=== PATIENT | male | born 1960 | race Caucasian/White ===

== ENCOUNTER 2016-09-23 21:24 | Inpatient (IN) | payer OTHER ==
[~2016-09-23] VITALS: Ht 177.8 cm; Wt 72.3 kg
[2016-09-23] MEDS ORDERED: DOPamine 400MG / D5W 400 MG IV STA (21:46)
[2016-09-23] MEDS ORDERED: SODIUM CHLORIDE 0.9% 1000ML 1,000 ML IV STA ×4 (21:46→22:11)
[2016-09-23] MEDS ORDERED: DOPamine 400MG / 250ML D5W ONE (21:47)
[2016-09-23] MEDS ORDERED: VANCOMYCIN INJ 1,600 MG in SODIUM CHLORIDE 0.9% 500ML 500 ML IV STA (21:48)
[2016-09-23] MEDS ORDERED: PIPERACILLIN/TAZOBACTAM 4.5 GM/100ML D5W IV STA (21:48)
[2016-09-23] MEDS ORDERED: ALBUT/IPRATROP 3MG/0.5MG NEB 3 ML VIAL INH STA (21:51)
--- NOTE | 2016-09-23 21:57 | DIAGNOSTIC IMAGING REPORT ---
CHEST ONE VIEW PORTABLE CLINICAL HISTORY: Weakness SHORTNESS OF BREATH, CHEST PAIN COMPARISON STUDY: No previous studies for comparison. FINDINGS: The heart is at the upper limits of normal in size. There are extensive left lung airspace opacities, likely representing a pneumonia. Clinical and radiographic follow-up is recommended[ IMPRESSION: Extensive left lung airspace opacities, suspicious for pneumonia. Clinical and imaging follow-up is recommended Electronically signed by: Kyler Saavedra M.D. 09/23/2016 9:56 PM Dictated Date/Time: 09/23/2016 9:55 PM
[2016-09-23] MEDS ORDERED: SODIUM CHLORIDE 0.9% 500ML 500 ML IV STA ×2 (21:58→22:42)
[2016-09-23 21:59] LABS: HEMATOCRIT 41.5 % (42-52); MEAN CELL VOLUME 96.3 fL (80-100); MEAN CORPUSCULAR HEMOGLOBIN 33.4 pg (25-34); MEAN CORPUSCULAR HGB CONC 34.7 g/dl (32-36); MEAN PLATELET VOLUME 10.5 fL (7.4-10.4); PLATELET COUNT 199 K/uL (130-400); RED BLOOD COUNT 4.31 M/uL (4.7-6.1); WHITE BLOOD COUNT 4.21 K/uL (4.8-10.8)
[2016-09-23 22:00] LABS: ISTAT CREATININE 3.1 mg/dl (0.6-1.3); ISTAT HEMOGLOBIN 13.6 g/dl (14.0-18.0); ISTAT IONIZED CALCIUM 1.12 mmol/l (1.12-1.32)
[2016-09-23] MEDS ORDERED: LEVAQUIN 750MG / 150ML D5W IV ONE (22:00)
[2016-09-23] MEDS ORDERED: FENTANYL CITRATE INJ 50 MCG/1 ML 2 ML VIAL IV ONE (22:00)
[2016-09-23 22:15] LABS: ALT/SGPT 19 U/L (12-78); BLOOD UREA NITROGEN 42 mg/dl (7-18); BUN/CREATININE RATIO 12.6 (10-20); CALCIUM 8.3 mg/dl (8.5-10.1); CARBON DIOXIDE 20 mmol/L (21-32); CHLORIDE 105 mmol/L (98-107); GLUCOSE 122 mg/dl (70-99); POTASSIUM 2.7 mmol/L (3.5-5.1); SODIUM 140 mmol/L (136-145)
[2016-09-23 22:18] LABS: INR 1.9 (0.9-1.1); PARTIAL THROMBOPLASTIN RATIO 2.5; PROTHROMBIN TIME (PATIENT) 21.1 SECONDS (9.0-12.0)
[2016-09-23 22:23] LABS: ALKALINE PHOSPHATASE 57 U/L (45-117); AST/SGOT 21 U/L (15-37); CKMB/CK RATIO 2.9 (0-3.0)
[2016-09-23] MEDS ORDERED: POTASSIUM CHLORIDE 10 MEQ / 100ML WTR IV STA (22:33)
[2016-09-23] MEDS ORDERED: CICL160A INH (22:34)
[2016-09-23] MEDS ORDERED: AMLO-110 PO (22:34)
[2016-09-23] MEDS ORDERED: ATOR-22 PO (22:34)
[2016-09-23] MEDS ORDERED: DOCU100C31 PO (22:34)
[2016-09-23] MEDS ORDERED: BISA1TAB15 PO (22:34)
[2016-09-23] MEDS ORDERED: FIBER PO (22:37)
[2016-09-23] MEDS ORDERED: TOPI50TA16 PO (22:39)
[2016-09-23] MEDS ORDERED: NAPR375T3 PO (22:39)
[2016-09-23] MEDS ORDERED: TOPI25TA99 PO (22:39)
[2016-09-23] MEDS ORDERED: LISI-725 PO (22:39)
[2016-09-23 22:41] VITALS: PULSE 120; O2SAT 95
[2016-09-23] MEDS ORDERED: VNTHFA/IN INH (22:42)
[2016-09-23 22:44] VITALS: PULSE 120; O2SAT 95
[2016-09-23] MEDS ORDERED: ONDANSETRON INJ 2 MG/ML 2 ML VIAL IV STA (22:59)
[2016-09-23] MEDS ORDERED: CONSULT PHARMACY STA (23:42)
[2016-09-23] MEDS ORDERED: VANCOMYCIN INJ 1,000 MG in SODIUM CHLORIDE 0.9% 250ML 250 ML IV STA (23:42)
[2016-09-23] MEDS ORDERED: LEVOFLOXACIN / D5W 750 MG in PREMIXED IN D5W 150 ML IV STA (23:42)
[2016-09-23] MEDS ORDERED: LINEZOLID / D5W 600 MG in PREMIXED IN D5W 300 ML IV STA (23:42)
[2016-09-23] MEDS ORDERED: TOBRAMYCIN SULF INJ 0 MG in DEXTROSE 5% 100ML 100 ML IV STA (23:42)
[2016-09-23] MEDS ORDERED: ALBUTEROL HFA 8 GM INHALER INH PRN (23:45)
[2016-09-23] MEDS ORDERED: ACETAMINOPHEN 325 MG TAB PO PRN (23:45)
[2016-09-23] MEDS ORDERED: BISACODYL 5 MG TABEC PO PRN (23:45)
[2016-09-23 23:52] LABS: LARGE PLATELETS 1+
[2016-09-24] VITALS (8 sets, daily range): BP systolic 17–97; BP diastolic 10–76; PULSE 93–117; TEMP 35.7–36.5; O2SAT 56–88; Ht 177.8 cm; Wt 72.3 kg
[2016-09-24] MEDS ORDERED: PIPERACILL/TAZOBAC IV 4.5 GM in DEXTROSE 5% 100ML 100 ML IV SCH ×2
[2016-09-24 00:46] LABS: COMPLETE YES; EOSINOPHIL % 0.9 %; LYMPHOCYTE % 42.7 %; META ABS # 1.43 K/uL (0-0); METAMYELOCYTE % 33.9 %; MYELOCYTE % 4.3 %
[2016-09-24] MEDS ORDERED: METHYLPREDNISOLONE IV 60 MG in SYRINGE 0 ML IV STA (00:57)
[2016-09-24] MEDS ORDERED: NSS + 20MEQ KCL 1000ML 1,000 ML IV SCH (01:00)
[2016-09-24] MEDS ORDERED: AZTREONAM IV 2,000 MG in DEXTROSE 5% 100ML 100 ML IV STA (01:05)
--- NOTE | 2016-09-24 01:07 | EMERGENCY ROOM VISIT NOTE ---
History Report prepared by Pollo: Domi Slater Under the Supervision of: Dr. Jonathan Fontaine M.D. First contact with patient: 21:46 Chief Complaint: CHEST PAIN Stated Complaint: SHORTNESS OF BREATH/CHEST PAIN Nursing Triage Summary: Pt arrives to ER via ALS w/ c/o SOB and chest pain. pt reports shortness of breath and chest pain all day. Collapsed while walking to cell this evening (no LOC). Pt was given nitro at that time with a pressure in the 80's systolically. Pts BP following nitro in the 70's systolically. 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 Pt on non-rebreather 10L with an O2 saturation of 99%. History of Present Illness The patient is a 56 year old male who presents to the Emergency Room with complaints of constant chest pain and shortness of breath beginning today. The patient states that he has been short of breath all day today and has had a cough for the last 2 days. He reports that he became extremely short of breath and collapsed tonight and became hypoxic. The patient was complaining of chest pain and got oxygen and nitroglycerin before becoming more hypotensive. EMS was called and the patient received a fluid bolus. They report that the patient had crackles in the lungs en route. The patient reports that he has left sided chest pain that he rates as an 8/10 in severity. He complains of back pain and flank pain. Pt denies LOC, headache, fevers, chills, visual changes, neck pain, nausea, vomiting, abdominal pain, melena, hematochezia, urinary symptoms, numbness, weakness, lymphadenopathy, rash, or other complaints. Source of History: patient Onset: this morning Position: chest Timing: constant Associated Symptoms: + chest pain, + SOB, + back pain Review of Systems See HPI for pertinent positives and negatives. A total of ten systems were reviewed and were otherwise negative. Past Medical & Surgical Medical Problems: (1) History of emphysema (2) Hypotension (3) Pneumonia (4) Severe sepsis Family History No pertinent family history stated. Social History Smoking Status: Never Smoker Marital Status: single Housing Status: other (prisoner) Occupation Status: unemployed Current/Historical Medications Scheduled Amlodipine (Norvasc), 5 MG PO DAILY Atorvastatin (Lipitor), 20 MG PO HS Ciclesonide (Alvesco), 1 PUFF INH BID Docusate Sodium (Docusate Sodium), 100 MG PO DAILY Fiber Laxative (Fiber Laxative), 1 TAB PO DAILY Lisinopril (Zestril), 20 MG PO DAILY Naproxen (Naproxen), 375 MG PO BID Topiramate (Topamax ), 25 MG PO BID Topiramate (Topamax), 50 MG PO BID Scheduled PRN Albuterol Hfa (Ventolin Hfa), 2 PUFFS INH Q4H PRN for SOB/Wheezing Bisacodyl (Bisacodyl), 10 MG PO DAILY PRN for Constipation Allergies Coded Allergies: No Known Allergies (Unverified , 09/23/16) Physical Exam Vital Signs Date Time Temp Pulse Resp B/P (MAP) Pulse Ox O2 Delivery O2 Flow Rate FiO2 09/23/16 23:31 116 16 106/64 100 BiPAP 09/23/16 23:16 09/23/16 23:11 115 98/68 09/23/16 23:06 114 90/56 09/23/16 23:05 118 09/23/16 23:01 82/48 09/23/16 22:56 90/48 09/23/16 22:55 117 09/23/16 22:52 87/48 09/23/16 22:45 117 09/23/16 22:44 120 26 95 BiPAP/CPAP 09/23/16 22:41 120 95 100 09/23/16 22:40 116 24 83/53 BiPAP 09/23/16 22:25 115 24 88/50 BiPAP 09/23/16 22:20 116 30 64/44 BiPAP 09/23/16 21:39 123 09/23/16 21:34 36.8 120 22 71/46 97 Non-Rebreather 10.0 09/23/16 21:34 97 Non-Rebreather 10.0 09/23/16 21:34 99 Non-Rebreather 10.0 Physical Exam GENERAL: Awake, alert, well-appearing, in moderate distress HENT: Normocephalic, atraumatic. Oropharynx unremarkable. EYES: Normal conjunctiva. Sclera non-icteric. NECK: Supple. No nuchal rigidity. FROM. No JVD. RESPIRATORY: Diffuse crackles and rhonchi on the left side, dyspneic appearing. CARDIAC: Tachycardic rate, normal rhythm. Extremities warm and well perfused. Pulses equal. ABDOMEN: Soft, non-distended. No tenderness to palpation. No rebound or guarding. No masses. RECTAL: Deferred. MUSCULOSKELETAL: Chest examination reveals no tenderness. The back is symmetrical on inspection without obvious abnormality. There is no CVA tenderness to palpation. No joint edema. LOWER EXTREMITIES: Calves are equal size bilaterally and non-tender. No edema. No discoloration. NEURO: Normal sensorium. No sensory or motor deficits noted. SKIN: No rash or jaundice noted. Medical Decision & Procedures ER Provider Diagnostic Interpretation: Radiology results as stated below per my review and radiologist interpretation: CHEST ONE VIEW PORTABLE FINDINGS: The heart is at the upper limits of normal in size. There are extensive left lung airspace opacities, likely representing a pneumonia. Clinical and radiographic follow-up is recommended[ IMPRESSION: Extensive left lung airspace opacities, suspicious for pneumonia. Clinical and imaging follow-up is recommended Electronically signed by: Kyler Saavedra M.D. 09/23/2016 9:56 PM Dictated Date/Time: 09/23/2016 9:55 PM Laboratory Results 09/23/16 21:40 Red Blood Count 4.31, Mean Corpuscular Volume 96.3, Mean Corpuscular Hemoglobin 33.4, Mean Corpuscular Hemoglobin Concent 34.7, Mean Platelet Volume 10.5 09/23/16 21:40 Test 09/23/16 21:40 09/23/16 21:42 09/23/16 21:48 09/23/16 22:08 White Blood Count 4.21 K/uL (4.8-10.8) Red Blood Count 4.31 M/uL (4.7-6.1) Hemoglobin 14.4 g/dL (14.0-18.0) Hematocrit 41.5 % (42-52) Mean Corpuscular Volume 96.3 fL (80-100) Mean Corpuscular Hemoglobin 33.4 pg (25-34) Mean Corpuscular Hemoglobin Concent 34.7 g/dl (32-36) Platelet Count 199 K/uL (130-400) Mean Platelet Volume 10.5 fL (7.4-10.4) RDW Standard Deviation 47.2 fL (36.4-46.3) RDW Coefficient of Variation 13.2 % (11.5-14.5) Neutrophils % (Manual) 13.0 % Lymphocytes % (Manual) 42.7 % Monocytes % (Manual) 5.2 % Eosinophils % (Manual) 0.9 % Metamyelocytes % 33.9 % Myelocytes % 4.3 % Neutrophils # (Manual) 0.55 K/uL (1.4-6.5) Total Absolute Neutrophils 0.55 K/uL (1.4-6.5) Lymphocytes # (Manual) 1.80 K/uL (1.2-3.4) Total Absolute Lymphocytes 1.80 K/uL (1.2-3.4) Monocytes # (Manual) 0.22 K/uL (0.11-0.59) Eosinophils # (Manual) 0.04 K/uL (0-0.5) Metamyelocytes # 1.43 K/uL (0-0) Myelocytes # 0.18 K/uL (0-0) Large Platelets 1+ Prothrombin Time 21.1 SECONDS (9.0-12.0) Prothromb Time International Ratio 1.9 (0.9-1.1) Activated Partial Thromboplast Time 65.8 SECONDS (21.0-31.0) Partial Thromboplastin Ratio 2.5 Est Creatinine Clear Calc Drug Dose 25.8 ml/min Estimated GFR () 22.9 Estimated GFR (Non- 19.8 BUN/Creatinine Ratio 12.6 (10-20) Calcium Level 8.3 mg/dl (8.5-10.1) Magnesium Level 2.0 mg/dl (1.8-2.4) Total Bilirubin 0.7 mg/dl (0.2-1) Direct Bilirubin 0.2 mg/dl (0-0.2) Aspartate Amino Transf (AST/SGOT) 21 U/L (15-37) Alanine Aminotransferase (ALT/SGPT) 19 U/L (12-78) Alkaline Phosphatase 57 U/L (45-117) Total Creatine Kinase 131 U/L (39-308) Creatine Kinase MB 3.8 ng/ml (0.5-3.6) Creatine Kinase MB Ratio 2.9 (0-3.0) Troponin I < 0.015 ng/ml (0-0.045) Total Protein 5.9 gm/dl (6.4-8.2) Albumin 2.6 gm/dl (3.4-5.0) Lipase 51 U/L (73-393) Thyroid Stimulating Hormone (TSH) 1.820 uIu/ml (0.300-4.500) Bedside Troponin I < 0.030 ng/ml (0-0.045) Bedside Hemoglobin 13.6 g/dl (14.0-18.0) Bedside Hematocrit 40 % (42-52) Bedside Sodium 137 mEq/L (135-144) Bedside Potassium 2.6 mEq/L (3.3-5.0) Bedside Chloride 102 mEq/L (101-112) Bedside Total CO2 18 mEq/l (24-31) Anion Gap 20.0 mmol/L (16-25) Bedside Blood Urea Nitrogen 39 mg/dl (7-18) Bedside Creatinine 3.1 mg/dl (0.6-1.3) Bedside Glucose (other) 122 mg/dl (70-99) Bedside Ionized Calcium ([place]) 1.12 mmol/l (1.12-1.32) Bedside Lactic Acid Venous 5.13 mmol/L (0.90-1.70) Laboratory results reviewed by me Medications Administered Medications (Trade) Dose Ordered Sig/Elma Route Start Time Stop Time Status Last Admin Dose Admin Sodium Chloride 1,000 ml @ 999 mls/hr Q1H1M STAT IV 09/23/16 21:46 09/23/16 22:46 DC 09/23/16 22:10 999 MLS/HR Dopamine HCl/ Dextrose 0 ml @ 0 mls/hr Q0M STAT IV 09/23/16 21:46 09/23/16 21:48 DC 09/23/16 22:04 10 MLS/HR Sodium Chloride 1,000 ml @ 999 mls/hr Q1H1M STAT IV 09/23/16 21:48 09/23/16 22:48 DC 09/23/16 22:10 999 MLS/HR Piperacillin Sod/ Tazobactam Sod (Zosyn Iv) 4.5 gm NOW STAT IV 09/23/16 21:48 09/23/16 21:52 DC 09/23/16 22:20 4.5 GM Levofloxacin (Levaquin / D5W) 750 mg NOW ONCE IV 09/23/16 22:00 09/23/16 22:01 DC 09/23/16 22:22 750 MG Vancomycin HCl 1600 mg/Sodium Chloride 532 ml @ 200 mls/hr ONE STAT IV 09/23/16 21:48 09/24/16 00:27 DC 09/23/16 22:58 200 MLS/HR Fentanyl Citrate (Fentanyl Inj) 50 mcg NOW ONCE IV 09/23/16 22:00 09/23/16 22:01 DC 09/23/16 22:12 50 MCG Albuterol/ Ipratropium (Duoneb) 3 ml NOW STAT INH 09/23/16 21:51 09/23/16 21:55 DC 09/23/16 22:09 3 ML Sodium Chloride 500 ml @ 999 mls/hr Q31M STAT IV 09/23/16 21:58 09/23/16 22:28 DC 09/23/16 22:10 999 MLS/HR Sodium Chloride 1,000 ml @ 200 mls/hr Q5H STAT IV 09/23/16 22:11 09/24/16 03:10 09/23/16 22:20 200 MLS/HR Potassium Chloride (Kcl 10 Meq / Wtr) 10 meq NOW STAT IV 09/23/16 22:33 09/23/16 22:35 DC 09/23/16 22:42 10 MEQ Sodium Chloride 500 ml @ 999 mls/hr Q31M STAT IV 09/23/16 22:42 09/23/16 23:12 DC 09/23/16 22:50 999 MLS/HR Ondansetron HCl (Zofran Inj) 4 mg NOW STAT IV 09/23/16 22:59 09/23/16 23:00 DC 09/23/16 23:05 4 MG The liter started prehospital was finished in the emergency department so the patient had a total of 3 L +200 mL an hour in addition to the IV fluids obtained through medication administration ECG Indication: chest pain Rate (beats per minute): 122 Rhythm: sinus tachycardia Findings: PVC, no acute ischemic change ED Course 2145: The patient was evaluated in room A1. A complete history and physical exam was performed. 2145: Dopamine HCl/Dextrose 0ml @0mls/hr IV, Sodium Chloride 1000 ml @ 125 mls/ hr IV, Sodium Chloride 1000 ml @ 999 mls/hr IV. 2146: Dopamine HCl/Dextrose 400mg IV. 2147: Vancomycin HCl 1600mg/Sodium Chloride 532ml @ 200mls/hr IV, Zosyn IV 4.5gm IV, Sodium Chloride 1000 ml @ 999 mls/hr IV. 2151: Duoneb 3ml INH. 2158: Sodium Chloride 500 ml @ 999 mls/hr IV. 2200: Fentanyl Inj 50mcg IV. 2226: I reevaluated and updated the patient. The patients blood pressure was moderately better at 88/50. He is on bipap. 2239: Discussed the patient's case with Dr. Mejia. The patient will be evaluated for further treatment and disposition. 2255: Discussed the patient's case with Dr. Baca of [facility]. The patient will be evaluated for further treatment and disposition. 2259: Zofran Inj 4mg IV. 2304: Upon reexamination, the patient was doing well. I discussed the test results and treatment plan with him. The patient will be evaluated for further management. 2313: I reevaluated the patient. 2312: I reevaluated the patient. His blood pressure in is in the 90s and he is looks clinically better and Dr. Baca is in the room. Medical Decision Triage Nursing notes reviewed. The patient's presentation and history were concerning for shortness of breath and hypotension along with chest pain. The patient also notes cough for several days. Etiologies such as pneumonia, COPD, reactive airway disease, CHF, cardiac ischemia, pulmonary embolism, pneumothorax, musculoskeletal, infections, gastrointestinal, as well as others were entertained. The patient was evaluated. I did take medical command on the patient. He seemed to be responding to normal saline. He was hypotensive and tachycardic. The patient's pulmonary examination was very concerning as he had significant rhonchi and crackles on the left side. He has had a cough. A stat portal chest x-ray was performed along with blood work. IV fluids were initiated via pressure bag. The chest x-ray was concerning for a large left-sided pneumonia. The patient had an elevated lactate over 5. I-STAT revealed renal failure and hypokalemia. Additional IV fluids were administered aggressively. The patient was given IV Zosyn, IV Levaquin, and IV vancomycin. He had 3 IVs. The patient was treated with IV potassium. Additional fluids were given. The patient's CBC revealed a leukopenia and mild anemia. His chemistry panel confirmed the i-STAT renal failure and hypokalemia. The patient's troponin was normal. LFTs and TSH were unremarkable. Urinalysis pending. The patient was frequently reassessed during his fluid resuscitation. Dopamine was added as he was moderately hypertensive. He had gradual improvement of his blood pressure from the 60s, through the 80s into the high 90s. Clinically he looked better and was feeling somewhat better. He was given IV fentanyl for symptom control 1. The patient was also placed on BiPAP as he had increased work of breathing. The patient did receive a DuoNeb through the BiPAP. I did consult with the bench boring machine operator, Dr. Mejia. We discussed the case. He recommended admission to the ICU. I did discuss the case with [facility]. He evaluated the patient promptly in the Emergency Room and admitted for further treatment. Medication Reconcilliation Current Medication List: was personally reviewed by me Blood Pressure Screening Patient's blood pressure: Low blood pressure Blood pressure disposition: Did not require urgent referral Consults Time Called: 2234 Consulting Physician: Dr. Mejia Returned Call: [phone] Discussed the patient's case. The patient will be evaluated for further treatment and disposition. Additional Consults: Time Called: 2239 Consulted Physician: Dr. Baca - [facility] Returned Call: [phone] Additional Comments: Discussed the patient's case with Dr. Baca. The patient will be evaluated for further treatment and disposition. Impression Primary Impression: Severe sepsis Additional Impressions: Pneumonia Hypokalemia Acute renal failure Critical Care I have personally spent greater than 45 minutes of critical care time in the direct management of this patient. This includes bedside care, interpretation of diagnostic studies, and testing, discussion with consultants, patient, and other required patient management activities. This 45 minutes is in excess of all separately billable procedures. Scribe Attestation The scribe's documentation has been prepared under my direction and personally reviewed by me in its entirety. I confirm that the note above accurately reflects all work, treatment, procedures, and medical decision making performed by me. Departure Information Dispostion Being Evaluated By Hospitalist Referrals Sylvia ROCHA (PCP) Patient Instructions [facility] Problem Qualifiers Additional Impressions: Pneumonia Pneumonia type: due to unspecified organism Laterality: left Lung location : unspecified part of lung Qualified Codes: J18.9 - Pneumonia, unspecified organism Acute renal failure Acute renal failure type: unspecified Qualified Codes: N17.9 - Acute kidney failure, unspecified
--- NOTE | 2016-09-24 01:17 | HISTORY & PHYSICAL EXAMINATION ---
DATE OF ADMISSION: 09/23/2016 PRIMARY CARE PROVIDER: From [facility]. CHIEF COMPLAINT: Increasing shortness of breath for the last 2 days and apparent collapse this evening with chest pain. HISTORY OF PRESENT COMPLAINT: He is a 56-year-old male from [facility] with past medical history of asthma/emphysema and chronic back pain and also a history of constipation. Apparently has been complaining of some shortness of breath with cough for the last 2 days. The condition got worse this evening, associated with near syncope this evening when he was brought to the Emergency Room for further evaluation. Before that, he also complained of some left-sided chest pain and he got sublingual nitro on the way that decreased the initial blood pressure of upper 80s to around 60s. On arrival to the Emergency Room, he was having more shortness of breath and his saturation was 99% on 10 liters nasal nonrebreather and his blood pressure noted to be 70 systolic. From that point, he was started with intravenous fluid resuscitation. In the meantime, the x-ray of the chest came back positive for extensive left lung air space opacities. Pneumonia was suspected and after taking blood culture, he was started with intravenous Zosyn, Levaquin and vancomycin. He was also started on IV dopamine to maintain the blood pressure and he was put on BiPAP to maintain saturation. His blood test came back significant for potassium of 2.6 and creatinine of 3.30 with increased BUN and lactic acid of 5.13. From that point, gold buyer was consulted and he was admitted to ICU for continuation of care. When asking questions, he denies to have any fever but he did have shakes and chills. He did have some cough without phlegm. No abdominal pain, nausea and/or vomiting. He has constipation but no acute problem at this time. Denies to have any problem with urine. He does not have any headache, any blurred vision, any numbness or tingling involving any of the extremities, and denies to have any acute joint swelling. PAST MEDICAL HISTORY: Significant for emphysema, chronic back pain. Also has hypertension and hyperlipidemia. PAST SURGICAL HISTORY: Nothing significant. FAMILY HISTORY: Not pertinent family history. SOCIAL HISTORY: He lives in the residential. He is still smoking about 14 cigarettes a day. He does not use any alcohol. He is single. REVIEW OF SYSTEMS: Other systemic review unremarkable except those mentioned in history of present complaint. ALLERGIES: NKDA. MEDICATIONS: He has been on amlodipine 5 mg daily, lisinopril 20 mg daily, naproxen 375 mg twice daily, albuterol inhaler as directed, Lipitor 20 mg daily, bisacodyl 5 mg tablet 10 mg daily, Alvesco 160 mcg 1 puff twice daily, docusate sodium 100 mg daily, fiber laxative as directed, Topamax 75 mg b.i.d. PHYSICAL EXAMINATION: GENERAL: On examination in the Emergency Room, he was having moderate shortness of breath at rest. VITAL SIGNS: Temperature 36.8, pulse was 120 initially and blood pressure 71/46 initially. The pulse went down to 116 and blood pressure went up to 106/64 when I was seeing him. Saturation 100% on BiPAP. HEENT: Unremarkable. NECK: Supple. No JVD, no bruit. CHEST: Decreased breath sounds all over with coarse crackles all over and wheezing but mostly on the left side. HEART: S1, S2 regular, no murmur. ABDOMEN: Soft, benign, distended. No organomegaly. Bowel sounds present. EXTREMITIES: Negative for any edema. MUSCULOSKELETAL: Did not show any acute arthritis involving any joint. CENTRAL NERVOUS SYSTEM: He was alert, awake, oriented x3. Generally awake but no focal sensory or motor deficit appreciated. LABORATORY DATA: Noted today, white count was 4.2, H&H 14.4/41.5, platelet was 199. Sodium 137, potassium 2.6, chloride 102, carbon dioxide 18, BUN 39, creatinine 3.0, random glucose 122, lactate was 5.13. LFTs unremarkable. Troponin less than 0.030. TSH 1.8 and lipase 51, albumin was 2.6 and total protein was 5.9. INR was 1.9 and PTT ratio 2.5, has been on Coumadin. Chest x-ray reported as extensive left lung air space opacities, suspicious for pneumonia. EKG still pending. EKG that was done by the EMS did show sinus rhythm, very poor baseline, nonspecific ST-T wave changes. We will get an EKG while in the hospital. IMPRESSION AND PLAN: 1. Severe sepsis secondary to left lung pneumonia with Neutropenia. Blood culture has been taken and the patient is started with intravenous Zosyn, Levaquin and vancomycin as per sepsis protocol. ID consultation will be obtained and he will be admitted to ICU.Neutropenic precaution 2. Hypotension secondary to severe sepsis. He received 3 liters of IV fluid in the Emergency Room and also started on inotrope with dopamine and the blood pressure has come up to 100 systolic during my examination. We will continue with IV fluid with potassium supplement. 3. Emphysema with left lung pneumonia. We will give nebulized bronchodilator around the clock and also give intravenous Solu-Medrol for early recovery. Continue with his usual inhalers. Continue BiPAP as needed. Pulmonary consultation may be needed while in the hospital. 4.Mild Leukopenia with Absolute Neutropenia and high Metamyelocytes Likely secondary to Severe Infection.Doubt Leukemoid reaction.Will monitor. May need Hematology consult. 5.Increased INR and PTT.Not sure about the cause ,LFTs unremarkable and the patient is not any anticoagulation/Will monitor for now. 5. Hypertension. Blood pressure seems to be controlled. 6. Acute kidney injury, do not know about his prior kidney function. We will give adequate fluid and monitor PRP. May need nephrology evaluation while in the hospital. 7. Deep venous thrombosis prophylaxis .SCDs No subcutaneous heparin now as INR and PTT are high 8. Gastrointestinal prophylaxis with PPI. 9. Code status. He will be full code and further management will depend on clinical course. To my clinical judgment, the beneficiary meets criteria as per CMS for 2-midnight stay in the hospital. JAMES
[2016-09-24] MEDS ORDERED: RAPID SEQUENCE INDUCTION BAG ONE (01:18)
[2016-09-24 01:23] LABS: IPAP 12; ISTAT ALLEN TEST Pass; ISTAT ARTERIAL BLOOD GAS HCO3 18 meq/L (19-24); ISTAT ARTERIAL BLOOD GAS PCO2 69 mmHg (35-46); ISTAT ARTERIAL BLOOD GAS PO2 315 mmHg (80-95); ISTAT ARTERIAL BLOOD GAS pH 7.03 (7.35-7.45); ISTAT CARBON DIOXIDE 20 mEq/l (24-31); ISTAT DELIVERY SYSTEM BIPAP; ISTAT FIO2 100 %; ISTAT RATE 30; ISTAT SITE R Radial
[2016-09-24] MEDS ORDERED: MIDAZOLAM 125MG/250ML D5W IV ONE (01:47)
[2016-09-24] MEDS ORDERED: LEVOFLOXACIN CONSULT ACTIVE PRN (02:45)
[2016-09-24] MEDS ORDERED: AZTREONAM CONSULT ACTIVE PRN ×2 (02:52)
[2016-09-24] MEDS ORDERED: VANCOMYCIN CONSULT ACTIVE PRN (03:00)
[2016-09-24 03:23] LABS: ISTAT ARTERIAL BLOOD GAS HCO3 19 meq/L (19-24); ISTAT ARTERIAL BLOOD GAS PCO2 87 mmHg (35-46); ISTAT ARTERIAL BLOOD GAS PO2 64 mmHg (80-95); ISTAT ARTERIAL BLOOD GAS pH 6.94 (7.35-7.45); ISTAT CARBON DIOXIDE 21 mEq/l (24-31); ISTAT HEMATOCRIT 36 % (42-52); ISTAT HEMOGLOBIN 12.2 g/dl (14.0-18.0); ISTAT SODIUM 137 mEq/L (135-144)
[2016-09-24] MEDS ORDERED: PIPERACILL/TAZOBAC IV 3.375 GM in DEXTROSE 5% 100ML 100 ML IV SCH (04:00)
[2016-09-24] MEDS: ALBUT/IPRATROP 3MG/0.5MG NEB 3 ML VIAL INH SCH ×2 (04:00)
[2016-09-24] MEDS ORDERED: NOREPINEPHRINE BIT INJ 8 MG in DEXTROSE 5% 500ML 500 ML IV PRN (04:08)
[2016-09-24] MEDS ORDERED: PIPERACILL/TAZOBAC CONSULT ACTIVE PRN (04:15)
[2016-09-24 04:31] LABS: HEMATOCRIT 41.2 % (42-52); MEAN CELL VOLUME 97.6 fL (80-100); MEAN CORPUSCULAR HEMOGLOBIN 32.9 pg (25-34); MEAN CORPUSCULAR HGB CONC 33.7 g/dl (32-36); MEAN PLATELET VOLUME 10.4 fL (7.4-10.4); PLATELET COUNT 197 K/uL (130-400); RED BLOOD COUNT 4.22 M/uL (4.7-6.1); WHITE BLOOD COUNT 1.86 K/uL (4.8-10.8)
[2016-09-24 04:33] LABS: ISTAT ALLEN TEST Pass; ISTAT ARTERIAL BLOOD GAS HCO3 18 meq/L (19-24); ISTAT ARTERIAL BLOOD GAS PCO2 90 mmHg (35-46); ISTAT ARTERIAL BLOOD GAS PO2 75 mmHg (80-95); ISTAT ARTERIAL BLOOD GAS pH 6.89 (7.35-7.45); ISTAT CARBON DIOXIDE 20 mEq/l (24-31); ISTAT DELIVERY SYSTEM Ventilator; ISTAT FIO2 100 %; ISTAT PEEP 5; ISTAT RATE 24; ISTAT SITE Art Line; Vt 550
[2016-09-24] MEDS ORDERED: SODIUM BICARBONATE 8.4% INJ 150 MEQ in DEXTROSE 5% 1000ML 1,000 ML IV SCH (04:45)
[2016-09-24] MEDS ORDERED: ALBUTEROL 0.5% NEB SOLN 2.5 MG/0.5 ML VIAL INH STA (04:56)
[2016-09-24 05:00] LABS: ALB/GLOB RATIO 0.7 (0.9-2); BUN/CREATININE RATIO 15.7 (10-20); CALCIUM 6.9 mg/dl (8.5-10.1); CREATININE 2.8 mg/dl (0.60-1.40); MAGNESIUM 1.9 mg/dl (1.8-2.4); POTASSIUM 4.5 mmol/L (3.5-5.1)
[2016-09-24] MEDS: POTASSIUM CHLR 10 MEQ / WTR 10 MEQ in PREMIXED WATER 100 ML IV SCH ×2 (05:22→06:24)
[2016-09-24 05:29] LABS: COMPLETE YES; LYMPH ABS # 0.64 K/uL (1.2-3.4); LYMPHOCYTE % 34.5 %; META ABS # 0.82 K/uL (0-0); METAMYELOCYTE % 44.3 %; MYELOCYTE % 9.7 %
[2016-09-24 05:51] LABS: URINE APPEARANCE TURBID (CLEAR); URINE BILIRUBIN NEG (NEG); URINE COLOR DK YELLOW; URINE EPITHELIAL CELL AUTO >30 /lpf (0-5); URINE NITRITE NEG (NEG); URINE SPECIFIC GRAVITY 1.027 (1.000-1.030); UROBILINOGEN NEG (NEG); ZZUR CULT IF INDIC CLEAN CATCH YES
[2016-09-24 05:52] LABS: MANUAL MICROSCOPIC REQUIRED? NO; REVIEW REQ? YES
[2016-09-24] MEDS ORDERED: HEPARIN SOD 5000 UNIT/0.5 ML CARP SQ SCH ×2 (06:00→09:00)
[2016-09-24] MEDS ORDERED: METHYLPREDNISOLONE IV 40 MG in SYRINGE 0 ML IV SCH (06:00)
[2016-09-24] MEDS ORDERED: NURSING VERBAL MED ORDER ONE (06:30)
[2016-09-24] MEDS ORDERED: MIDAZOLAM 125MG/250ML D5W 250 ML IV PRN (06:30)
[2016-09-24] MEDS ORDERED: NOREPINEPHRINE BIT INJ 16 MG in DEXTROSE 5% 500ML 500 ML IV PRN (07:00)
[2016-09-24] MEDS ORDERED: NURSING VERBAL MED ORDER STA (07:10)
--- NOTE | 2016-09-24 07:29 | DIAGNOSTIC IMAGING REPORT ---
CHEST ONE VIEW PORTABLE CLINICAL HISTORY: Follow up ARDS COMPARISON STUDY: Chest radiograph September 24, 2016 2:24 AM. FINDINGS: The tip of the endotracheal tube is 5 cm above the maribel. The tip of the nasogastric tube is below the lower aspect of this image but at least within the gastric cardia. The tip of the left subclavian central line projects over the confluence of the brachiocephalic veins. There has been interval development of an elliptical lucency within the left upper hemithorax which measures 3.6 cm in thickness. This is consistent with a small pneumothorax. The unusual configuration may be related to pneumonia. Dense left lung consolidation is noted. There is a small right pleural effusion. There is suspected emphysema within the right lung. IMPRESSION: 1. Interval development of a small left apical pneumothorax. This finding will be called to the ordering physician. 2. Satisfactory positioning of lines and tubes. 3. No change in extensive left lung airspace opacity which favors pneumonia. 4. Suspected right lung emphysema. 5. Small right pleural effusion. Electronically signed by: Lenny Bowman M.D. 09/24/2016 7:28 AM Dictated Date/Time: 09/24/2016 7:18 AM
[2016-09-24] MEDS ORDERED: VASOPRESSIN INJ 50 UNITS in SODIUM CHLORIDE 0.9% 500ML 500 ML IV SCH (07:30)
--- NOTE | 2016-09-24 07:33 | DIAGNOSTIC IMAGING REPORT ---
CHEST ONE VIEW PORTABLE HISTORY: 56 years-old Male S/P INTUBATION, CONFIRMATION OF TUBE PLACEMENT COMPARISON: Portable chest radiograph 09/23/2016 TECHNIQUE: Portable upright AP view of the chest FINDINGS: The patient is rotated to the right. Endotracheal tube has been placed with distal tip terminating at the level of the midclavicular heads over 6 cm above the level of the maribel. Enteric tube is present with distal tip outside the [id number] below the level of the diaphragm. Left subclavian central venous catheter is present with distal tip terminating to the right of midline, likely within the region of the mid SVC. Cardiac silhouette is again partially obscured by extensive alveolar opacities throughout the left lung which have slightly worsened from comparison. There is a small postprocedural pneumothorax with visceral pleural separation of 7 mm. Minimal blunting of the costophrenic angles is present bilaterally suggesting atelectasis or trace effusions. Hazy right basilar opacity has developed in the interval. IMPRESSION: 1. Left subclavian central venous catheter terminates in the region of the mid SVC with associated small left apical postprocedural pneumothorax. 2. Endotracheal tube terminates above the maribel. 3. Mildly worsened extensive alveolar opacities throughout the left lung again suggests pneumonia. The above report was generated using voice recognition software. It may contain grammatical, syntax or spelling errors. Electronically signed by: Jerrod Montes M.D. 09/24/2016 7:31 AM Dictated Date/Time: 09/24/2016 7:23 AM
--- NOTE | 2016-09-24 08:54 | Progress Note ---
Progress Note Date of Service Sep 24, 2016. Progress Note The patient was seen by Microscopist early this morning.He was noted to be very Acidotic and confusion.He was intubated and Central line was placed.At around 7 AM his condition deteriorated further and Code Blue was called . CPR and resuscitation efforts continued for more than 15 minutes without any effect. The patient was pronounced on 09/24/2016 at 0727Hours, Forge Tender physician at [facility] and Outside Maintenance Worker were notified. The causes of :: Severe Sepsis,Pneumonia hypotension and COPD Dr Isak Baca
[2016-09-24] MEDS ORDERED: PSYLLIUM 58.6% PWD PACK S\\F PO SCH (09:00)
[2016-09-24] MEDS ORDERED: DOCUSATE SODIUM 100 MG CAP PO SCH (09:00)
[2016-09-24] MEDS ORDERED: POTASSIUM CHLORIDE 20 MEQ TABCR PO SCH (09:00)
[2016-09-24] MEDS ORDERED: TOPIRAMATE 25 MG TAB PO SCH ×2 (09:00)
[2016-09-24] MEDS ORDERED: ARTIFICIAL TEARS OP SOLN OP SCH ×2 (09:00)
[2016-09-24] MEDS ORDERED: CHLORHEXIDINE GLUCONATE 0.12% 480 ML MT SCH (09:00)
[2016-09-24] MEDS ORDERED: ALBUTEROL HFA 8 GM INHALER INH SCH (09:00)
[2016-09-24] MEDS ORDERED: METHYLPREDNISOLONE IV 60 MG in SYRINGE 0 ML IV SCH (09:00)
[2016-09-24] MEDS ORDERED: IPRATROPIUM BROMIDE HFA INHALER INH SCH (09:00)
[2016-09-24] MEDS ORDERED: FAMOTIDINE IV INJ 20 MG in DEXTROSE 5% 100ML 100 ML IV SCH (09:00)
[2016-09-24] MEDS ORDERED: VANCOMYCIN INJ 1,000 MG in SODIUM CHLORIDE 0.9% 250ML 250 ML IV SCH (09:00)
--- NOTE | 2016-09-24 09:03 | Discharge Summary ---
Discharge Summary Date of Service Sep 24, 2016. Discharge Summary Admission Date: Sep 23, 2016 at 23:41 Discharge Date: Sep 24, 2016 Discharge Disposition: Principal Diagnosis: Causes of :Severe Sepsis,Pneumonia,Hypotension,COPD Secondary Diagnoses/Problems: Please see H&P and Hospital Progress note Admission Information HPI (per Admitting provider): DATE OF ADMISSION: 09/23/2016 PRIMARY CARE PROVIDER: From [facility]. CHIEF COMPLAINT: Increasing shortness of breath for the last 2 days and apparent collapse this evening with chest pain. HISTORY OF PRESENT COMPLAINT: He is a 56-year-old male from [facility] with past medical history of asthma/emphysema and chronic back pain and also a history of constipation. Apparently has been complaining of some shortness of breath with cough for the last 2 days. The condition got worse this evening, associated with near syncope this evening when he was brought to the Emergency Room for further evaluation. Before that, he also complained of some left-sided chest pain and he got sublingual nitro on the way that decreased the initial blood pressure of upper 80s to around 60s. On arrival to the Emergency Room, he was having more shortness of breath and his saturation was 99% on 10 liters nasal nonrebreather and his blood pressure noted to be 70 systolic. From that point, he was started with intravenous fluid resuscitation. In the meantime, the x-ray of the chest came back positive for extensive left lung air space opacities. Pneumonia was suspected and after taking blood culture, he was started with intravenous Zosyn, Levaquin and vancomycin. He was also started on IV dopamine to maintain the blood pressure and he was put on BiPAP to maintain saturation. His blood test came back significant for potassium of 2.6 and creatinine of 3.30 with increased BUN and lactic acid of 5.13. From that point, structural welder was consulted and he was admitted to ICU for continuation of care. When asking questions, he denies to have any fever but he did have shakes and chills. He did have some cough without phlegm. No abdominal pain, nausea and/or vomiting. He has constipation but no acute problem at this time. Denies to have any problem with urine. He does not have any headache, any blurred vision, any numbness or tingling involving any of the extremities, and denies to have any acute joint swelling. PAST MEDICAL HISTORY: Significant for emphysema, chronic back pain. Also has hypertension and hyperlipidemia. PAST SURGICAL HISTORY: Nothing significant. FAMILY HISTORY: Not pertinent family history. SOCIAL HISTORY: [place]. He is still smoking about 14 cigarettes a day. He does not use any alcohol. He is single. REVIEW OF SYSTEMS: Other systemic review unremarkable except those mentioned in history of present complaint. ALLERGIES: NKDA. MEDICATIONS: He has been on amlodipine 5 mg daily, lisinopril 20 mg daily, naproxen 375 mg twice daily, albuterol inhaler as directed, Lipitor 20 mg daily, bisacodyl 5 mg tablet 10 mg daily, Alvesco 160 mcg 1 puff twice daily, docusate sodium 100 mg daily, fiber laxative as directed, Topamax 75 mg b.i.d. PHYSICAL EXAMINATION: GENERAL: On examination in the Emergency Room, he was having moderate shortness of breath at rest. VITAL SIGNS: Temperature 36.8, pulse was 120 initially and blood pressure 71/46 initially. The pulse went down to 116 and blood pressure went up to 106/64 when I was seeing him. Saturation 100% on BiPAP. HEENT: Unremarkable. NECK: Supple. No JVD, no bruit. CHEST: Decreased breath sounds all over with coarse crackles all over and wheezing but mostly on the left side. HEART: S1, S2 regular, no murmur. ABDOMEN: Soft, benign, distended. No organomegaly. Bowel sounds present. EXTREMITIES: Negative for any edema. MUSCULOSKELETAL: Did not show any acute arthritis involving any joint. CENTRAL NERVOUS SYSTEM: He was alert, awake, oriented x3. Generally awake but no focal sensory or motor deficit appreciated. LABORATORY DATA: Noted today, white count was 4.2, H&H 14.4/41.5, platelet was 199. Sodium 137, potassium 2.6, chloride 102, carbon dioxide 18, BUN 39, creatinine 3.0, random glucose 122, lactate was 5.13. LFTs unremarkable. Troponin less than 0.030. TSH 1.8 and lipase 51, albumin was 2.6 and total protein was 5.9. INR was 1.9 and PTT ratio 2.5, has been on Coumadin. Chest x-ray reported as extensive left lung air space opacities, suspicious for pneumonia. EKG still pending. EKG that was done by the EMS did show sinus rhythm, very poor baseline, nonspecific ST-T wave changes. We will get an EKG while in the hospital. IMPRESSION AND PLAN: 1. Severe sepsis secondary to left lung pneumonia with Neutropenia. Blood culture has been taken and the patient is started with intravenous Zosyn, Levaquin and vancomycin as per sepsis protocol. ID consultation will be obtained and he will be admitted to ICU.Neutropenic precaution 2. Hypotension secondary to severe sepsis. He received 3 liters of IV fluid in the Emergency Room and also started on inotrope with dopamine and the blood pressure has come up to 100 systolic during my examination. We will continue with IV fluid with potassium supplement. 3. Emphysema with left lung pneumonia. We will give nebulized bronchodilator around the clock and also give intravenous Solu-Medrol for early recovery. Continue with his usual inhalers. Continue BiPAP as needed. Pulmonary consultation may be needed while in the hospital. 4.Mild Leukopenia with Absolute Neutropenia and high Metamyelocytes Likely secondary to Severe Infection.Doubt Leukemoid reaction.Will monitor. May need Hematology consult. 5.Increased INR and PTT.Not sure about the cause ,LFTs unremarkable and the patient is not any anticoagulation/Will monitor for now. 5. Hypertension. Blood pressure seems to be controlled. 6. Acute kidney injury, do not know about his prior kidney function. We will give adequate fluid and monitor PRP. May need nephrology evaluation while in the hospital. 7. Deep venous thrombosis prophylaxis .SCDs No subcutaneous heparin now as INR and PTT are high 8. Gastrointestinal prophylaxis with PPI. 9. Code status. He will be full code and further management will depend on clinical course. To my clinical judgment, the beneficiary meets criteria as per CMS for 2-midnight stay in the hospital. Hospital Course Admitted with Severe sepsis secondary to Extensive Pneumonia involving the left lung.Noted to be Neutropenic with abnormal coagulation tests and MILTON. Condition deteriorated with confusion and Acidosis and required intubation Started on Zosyn,Levaquin and Vancomycin associated with IV Fluid , bronchodilators and Steroid. Appropriate Electrolytes were replaced Condition deteriorated further and the patient coded at around 7 AM Resuscitation efforts failed Patient on 09/24/16 at 0727 hrs Total time spent on discharge = This includes examination of the patient, discharge planning, medication reconciliation, and communication with other providers. Discharge Instructions :Severe Sepsis,Pneumonia,Hypotension ,COPD Discussed with radio division captain doctor at [facility].Dr Marcial Additional Copies To SCI,Sylvia
--- NOTE | 2016-09-24 09:31 | Critical Care Progress Note ---
Critical Care Progress Note Date of Service Sep 24, 2016. Critical Care Progress Note At approximately 0710, I was asked to evaluate patient in 103 in the ICU. The patient had diffuse mottling throughout his body. He had flattening of the ears. The patient's pulse oximetry was in the low 50s where it apparently had remained most of the night. Blood pressures were in the 40s. He was maxed out on Levophed. Verbal order was provided to nursing staff to add vasopressin. Code cart was brought into the room. Faint palpable LEFT carotid pulse was appreciated. Faint LEFT femoral pulse was noted on Doppler per nursing staff - I confirmed. At 0 713, asystole was noted on the monitor. Compressions were immediately initiated. Code was called at 0 714 overhead. Appropriate staff were present in the room. Patient initially received 1 amp of epinephrine. Compressions were continued. No pulses were felt on repeat blood pressure check. I was able to briefly review records and have discussion with overnight nurse regarding patient's current status. ABG demonstrated a pH of 7.0 despite aggressive oxygenation attempts overnight. Verbal order for ABG as well as electrolytes was provided nursing staff. Patient was provided 1 amp of bicarbonate given his previous ABG and concern for ineffectiveness of pressors. Vasopressin was started by nursing staff. The patient received a total of 4 rounds of epinephrine with appropriate pulse checks and compressions performed by staff. Dr. Baca, the admitting physician, had presented to the room and provided brief history as well. He did attempt to contact halfway Physician electrical contacts adjuster. After several rounds of compression and epinephrine, it was noted the patient had frothy pinkish sputum from the endotracheal tube. The patient was obviously not oxygenating per exam and pulse oximetry reading. His ABG had not improved despite aggressive attempts for oxygenation and blood pressure management. At this time, resuscitation efforts were terminated as patient was pulseless, no heart sounds were heard and was without spontaneous reparations. Asystole noted on the monitor and recorded in chart. Time of 726. noted to be completed by Dr. Baca.
--- NOTE | 2016-09-24 09:37 | Critical Care Consultation ---
Critical Care Consultation Date of Consultation: Sep 24, 2016. Attending Physician: Marj Tarango DO Reason for Consultation: acute respiratory failure History of Present Illness this is 56 yo , m, active smoker, incarcerated, presented to the hospital with chest pain accompanied by dyspnea, , found to be hypoxic in the ED to the 60's , started on the bipap and had work up which revealed severe extensive pneumonia taking over the left lung entirely, the pt was admitted to the ICU after starting on the ABx, lactate was elevated, IVF started as well. BP remains low and started on dopamine . in the ICU, the pt was lethargic barely arousable, and with bipap , his arterial PH was 7.0. the pt was intubated, and continue on Abx and IVF, due to hypothermia, the pt ph remains 6.9, and started on Ac mode, CVL placed on the left subclavian for pressors. attempted A line on the left radial did not thread the wire due to severe clamping of the vessel. right femoral a line placed with one attempt and secured. due to persistent hypercapnea, the pt underwent bronchoscopy with results of large amount of digested food material occluding all the bronchi of the Left lung and the RLL bronchi. specimen sent for micro. the pt started on bicarb drip and a bed side echo done by me showed poor contractility with EF estimated about 25%, dilated RV, small pleural effusion and pericardial effusion. Past Medical/Surgical History COPD, active smoker, PAD, cor pulmonale, no available hx of CAD to me from the past. Social History Smoking Status: Current Every Day Smoker Marital Status: single Housing Status: other (prisoner) Occupation Status: unemployed Allergies Coded Allergies: No Known Allergies (Unverified , 09/23/16) Home Medications Scheduled Amlodipine (Norvasc), 5 MG PO DAILY Atorvastatin (Lipitor), 20 MG PO HS Ciclesonide (Alvesco), 1 PUFF INH BID Docusate Sodium (Docusate Sodium), 100 MG PO DAILY Fiber Laxative (Fiber Laxative), 1 TAB PO DAILY Lisinopril (Zestril), 20 MG PO DAILY Naproxen (Naproxen), 375 MG PO BID Topiramate (Topamax ), 25 MG PO BID Topiramate (Topamax), 50 MG PO BID Scheduled PRN Albuterol Hfa (Ventolin Hfa), 2 PUFFS INH Q4H PRN for SOB/Wheezing Bisacodyl (Bisacodyl), 10 MG PO DAILY PRN for Constipation Current Inpatient Medications Current Inpatient Medications Medications (Trade) Dose Ordered Sig/Elma Route Start Time Stop Time Status Last Admin Dose Admin Acetaminophen (Tylenol Tab) 650 mg Q4H PRN PO 09/23/16 23:45 10/23/16 23:44 Levofloxacin 750 mg/Prmx 150 ml @ 100 mls/hr Q48H IV 09/25/16 22:00 09/30/16 23:59 Albuterol (Ventolin Hfa Inhaler) 2 puffs Q4H PRN INH 09/23/16 23:45 10/23/16 23:44 Future Hold Atorvastatin Calcium (Lipitor Tab) 20 mg HS PO 09/24/16 21:00 10/24/16 20:59 Bisacodyl (Dulcolax Tab) 10 mg DAILY PRN PO 09/23/16 23:45 10/23/16 23:44 Docusate Sodium (coLACE CAP) 100 mg DAILY PO 09/24/16 09:00 10/24/16 08:59 Topiramate (Topamax Tab) 75 mg BID PO 09/24/16 09:00 10/24/16 08:59 Miscellaneous Information (Order Awaiting Action) 1 ea QS N/A 09/24/16 08:00 10/24/16 07:59 Psyllium Hydrophilic Mucilloid (Metamucil Powder) 1 pkt DAILY PO 09/24/16 09:00 10/24/16 08:59 Potassium Chloride (Klor-Con Tab) 40 meq QAM PO 09/24/16 09:00 10/24/16 08:59 Levofloxacin (Consult) 1 ea UD PRN N/A 09/24/16 02:45 10/24/16 02:44 Vancomycin HCl (Consult) 1 ea UD PRN N/A 09/24/16 03:00 10/24/16 02:59 Chlorhexidine Gluconate (Peridex Oral Soln) 15 ml DAILY MT 09/24/16 09:00 10/24/16 08:59 Artificial Tears (Artificial Tears) 1 drops DAILY OP 09/24/16 09:00 10/24/16 08:59 Methylprednisolone Sodium Succinate 40 mg/Syringe 0.64 ml @ 1.5 mls/min Q6 IV 09/24/16 06:00 10/24/16 08:59 09/24/16 06:25 1.5 MLS/MIN Piperacillin Sod/ Tazobactam Sod 3.375 gm/Dextrose 115 ml @ 28.75 mls/ hr Q8H IV 09/24/16 04:00 10/01/16 03:59 09/24/16 05:29 28.75 MLS/HR Heparin Sodium (Porcine) (Heparin Sq 5000 Unit/0.5ml) 5,000 unit Q12 SQ 09/24/16 09:00 10/24/16 08:59 Famotidine 20 mg/ Dextrose 102 ml @ 200 mls/hr DAILY IV 09/24/16 09:00 10/24/16 08:59 Piperacillin Sod/ Tazobactam Sod (Consult) 1 ea UD PRN N/A 09/24/16 04:15 10/24/16 04:14 Sodium Bicarbonate 150 meq/Dextrose 1,150 ml @ 150 mls/hr Q7H40M IV 09/24/16 04:45 10/24/16 04:44 09/24/16 05:22 150 MLS/HR Ipratropium [place] (Atrovent Hfa Inhaler) 4 puffs Q6R INH 09/24/16 09:00 10/24/16 08:59 Albuterol (Ventolin Hfa Inhaler) 4 puffs Q6R INH 09/24/16 09:00 10/24/16 08:59 Midazolam HCl 250 ml @ 8 mls/hr Q24H PRN IV 09/24/16 06:30 10/24/16 06:29 Norepinephrine Bitartrate 16 mg/ Dextrose 516 ml @ 0 mls/hr Q0M PRN IV 09/24/16 07:00 10/24/16 06:59 Vasopressin 50 units/Sodium Chloride 502.5 ml @ 24 mls/hr [id number] IV 09/24/16 07:30 10/24/16 07:29 Review of Systems Constitutional: + weight loss Respiratory: + cough, + sputum, + wheezing, + shortness of breath, + dyspnea on exertion Cardiovascular: + chest pain Abdomen: No pain, No nausea, No vomiting, No diarrhea, No constipation, No GI bleeding, No problem reported Musculoskeletal: No joint pain, No muscle pain, No swelling, No calf pain, No problem reported Neurologic: + memory loss Psychiatric: No depression symptoms, No anhedonism, No anxiety, No insomnia, No substance abuse, No problem reported Endocrine: + fatigue Integumentary: + rash Allergic / Immunologic: No environmental allergies, No seasonal allergies, No pet sensitivities, No food allergies, No hives, No frequent infections, No poor healing, No prolonged convalescence, No problem reported Physical Exam Date Time Temp Pulse Resp B/P (MAP) Pulse Ox O2 Delivery O2 Flow Rate FiO2 09/24/16 07:20 100 09/24/16 05:14 100 09/24/16 05:12 110 28 Mechanical Ventilator 09/24/16 05:00 35.7 110 28 09/24/16 04:00 35.7 113 24 01/12 (12) 100 09/24/16 04:00 109 24 (13) 01/1209/24/16 04:00 100 09/24/16 03:00 107 24 09/24/16 02:57 100 09/24/16 02:00 117 22 09/24/16 02:00 117 22 09/24/16 00:30 116 88 100 09/24/16 00:30 36.5 115 26 97/76 BiPAP 100 09/24/16 00:08 115 24 113/65 100 09/23/16 23:31 116 16 106/64 100 BiPAP 09/23/16 23:16 09/23/16 23:11 115 98/68 09/23/16 23:06 114 90/56 09/23/16 23:05 118 09/23/16 23:01 82/48 09/23/16 22:56 90/48 09/23/16 22:55 117 09/23/16 22:52 87/48 09/23/16 22:45 117 09/23/16 22:44 120 26 95 BiPAP/CPAP 09/23/16 22:41 120 95 100 09/23/16 22:40 116 24 83/53 BiPAP 09/23/16 22:25 115 24 88/50 BiPAP 09/23/16 22:20 116 30 64/44 BiPAP 09/23/16 21:39 123 09/23/16 21:34 36.8 120 22 71/46 97 Non-Rebreather 10.0 09/23/16 21:34 97 Non-Rebreather 10.0 09/23/16 21:34 99 Non-Rebreather 10.0 General Appearance: moderate distress, severe distress, thin, cachetic Eyes: PERRLA, EOMI ENT: normal nasal exam, dentures Neck: normal range of motion, no tenderness, trachea midline, no stridor Respiratory: other Cardiovasular: regular rate/rhythm, normal S1S2, no M/G/R Abdomen: non tender, normal bowel sounds, no hernia Back: normal inspection Upper Extremities: no edema Lower Extremities: no edema, other Neuro: alert, lethargic Psychiatric: flat affect Laboratory Results Last 24 Hours Test 09/23/16 21:40 09/23/16 21:42 09/23/16 21:48 09/23/16 22:08 White Blood Count 4.21 K/uL Red Blood Count 4.31 M/uL Hemoglobin 14.4 g/dL Hematocrit 41.5 % Mean Corpuscular Volume 96.3 fL Mean Corpuscular Hemoglobin 33.4 pg Mean Corpuscular Hemoglobin Concent 34.7 g/dl Platelet Count 199 K/uL Mean Platelet Volume 10.5 fL RDW Standard Deviation 47.2 fL RDW Coefficient of Variation 13.2 % Neutrophils % (Manual) 13.0 % Lymphocytes % (Manual) 42.7 % Monocytes % (Manual) 5.2 % Eosinophils % (Manual) 0.9 % Metamyelocytes % 33.9 % Myelocytes % 4.3 % Neutrophils # (Manual) 0.55 K/uL Total Absolute Neutrophils 0.55 K/uL Lymphocytes # (Manual) 1.80 K/uL Total Absolute Lymphocytes 1.80 K/uL Monocytes # (Manual) 0.22 K/uL Eosinophils # (Manual) 0.04 K/uL Metamyelocytes # 1.43 K/uL Myelocytes # 0.18 K/uL Large Platelets 1+ Prothrombin Time 21.1 SECONDS Prothromb Time International Ratio 1.9 Activated Partial Thromboplast Time 65.8 SECONDS Partial Thromboplastin Ratio 2.5 Sodium Level 140 mmol/L Potassium Level 2.7 mmol/L Chloride Level 105 mmol/L Carbon Dioxide Level 20 mmol/L Anion Gap 15.0 mmol/L 20.0 mmol/L Blood Urea Nitrogen 42 mg/dl Creatinine 3.30 mg/dl Est Creatinine Clear Calc Drug Dose 25.8 ml/min Estimated GFR () 22.9 Estimated GFR (Non- 19.8 BUN/Creatinine Ratio 12.6 Random Glucose 122 mg/dl Calcium Level 8.3 mg/dl Magnesium Level 2.0 mg/dl Total Bilirubin 0.7 mg/dl Direct Bilirubin 0.2 mg/dl Aspartate Amino Transf (AST/SGOT) 21 U/L Alanine Aminotransferase (ALT/SGPT) 19 U/L Alkaline Phosphatase 57 U/L Total Creatine Kinase 131 U/L Creatine Kinase MB 3.8 ng/ml Creatine Kinase MB Ratio 2.9 Troponin I < 0.015 ng/ml Total Protein 5.9 gm/dl Albumin 2.6 gm/dl Lipase 51 U/L Thyroid Stimulating Hormone (TSH) 1.820 uIu/ml Bedside Troponin I < 0.030 ng/ml Bedside Hemoglobin 13.6 g/dl Bedside Hematocrit 40 % Bedside Sodium 137 mEq/L Bedside Potassium 2.6 mEq/L Bedside Chloride 102 mEq/L Bedside Total CO2 18 mEq/l Bedside Blood Urea Nitrogen 39 mg/dl Bedside Creatinine 3.1 mg/dl Bedside Glucose (other) 122 mg/dl Bedside Ionized Calcium ([place]) 1.12 mmol/l Bedside Lactic Acid Venous 5.13 mmol/L Test 09/24/16 00:12 09/24/16 01:11 09/24/16 02:44 09/24/16 04:10 Lactic Acid Level 3.8 mmol/L 1.7 mmol/L Blood Gas Sample Site R Radial Bedside Blood Gas pH (LAB) 7.03 6.94 Bedside Blood Gas pCO2 (LAB) 69 mmHg 87 mmHg Bedside Blood Gas pO2 (LAB) 315 mmHg 64 mmHg Bedside Blood Gas HCO3 (LAB) 18 meq/L 19 meq/L Bedside Blood Gas Total CO2 20 mEq/l 21 mEq/l Bedside Blood Gas Base Excess (LAB) -13.0 meq/L -13.0 meq/L Bedside Blood Gas O2 Saturation 100.0 % 74.0 % Tao Test Pass Oxygen Delivery Device BIPAP Bedside Oxygen Rate (breaths/min) 30 Bedside FiO2 100 % Blood Gas IPAP 12 Bedside Hemoglobin 12.2 g/dl Bedside Hematocrit 36 % Bedside Sodium 137 mEq/L Bedside Potassium 3.7 mEq/L White Blood Count 1.86 K/uL Red Blood Count 4.22 M/uL Hemoglobin 13.9 g/dL Hematocrit 41.2 % Mean Corpuscular Volume 97.6 fL Mean Corpuscular Hemoglobin 32.9 pg Mean Corpuscular Hemoglobin Concent 33.7 g/dl Platelet Count 197 K/uL Mean Platelet Volume 10.4 fL RDW Standard Deviation 47.9 fL RDW Coefficient of Variation 13.4 % Neutrophils % (Manual) 8.0 % Lymphocytes % (Manual) 34.5 % Monocytes % (Manual) 3.5 % Metamyelocytes % 44.3 % Myelocytes % 9.7 % Neutrophils # (Manual) 0.15 K/uL Total Absolute Neutrophils 0.15 K/uL Lymphocytes # (Manual) 0.64 K/uL Total Absolute Lymphocytes 0.64 K/uL Monocytes # (Manual) 0.07 K/uL Metamyelocytes # 0.82 K/uL Myelocytes # 0.18 K/uL Red Blood Cell Morphology Unremarkable Sodium Level 140 mmol/L Potassium Level 4.5 mmol/L Chloride Level 113 mmol/L Carbon Dioxide Level 20 mmol/L Anion Gap 7.0 mmol/L Blood Urea Nitrogen 44 mg/dl Creatinine 2.80 mg/dl Est Creatinine Clear Calc Drug Dose 30.1 ml/min Estimated GFR () 28.0 Estimated GFR (Non- 24.1 BUN/Creatinine Ratio 15.7 Random Glucose 126 mg/dl Calcium Level 6.9 mg/dl Magnesium Level 1.9 mg/dl Total Bilirubin 0.5 mg/dl Direct Bilirubin 0.2 mg/dl Aspartate Amino Transf (AST/SGOT) 46 U/L Alanine Aminotransferase (ALT/SGPT) 30 U/L Alkaline Phosphatase 48 U/L Total Protein 4.9 gm/dl Albumin 2.0 gm/dl Globulin 2.9 gm/dl Albumin/Globulin Ratio 0.7 Hepatitis C Antibody Screen NEG Test 09/24/16 04:16 09/24/16 04:44 09/24/16 05:35 09/24/16 06:24 Blood Gas Sample Site Art Line Bedside Blood Gas pH (LAB) 6.89 Bedside Blood Gas pCO2 (LAB) 90 mmHg Bedside Blood Gas pO2 (LAB) 75 mmHg Bedside Blood Gas HCO3 (LAB) 18 meq/L Bedside Blood Gas Total CO2 20 mEq/l Bedside Blood Gas Base Excess (LAB) -16.0 meq/L Bedside Blood Gas O2 Saturation 82.0 % Tao Test Pass Oxygen Delivery Device Ventilator Bedside Oxygen Rate (breaths/min) 24 Blood Gas Minute Ventilation 12.0 Bedside FiO2 100 % Blood Gas Tidal Volume 550 Blood Gas PEEP 5 Urine Color DK YELLOW Urine Appearance TURBID Urine pH 5.0 Urine Specific [place] 1.027 Urine Protein 2+ Urine Glucose (UA) TRACE Urine Ketones NEG Urine Occult Blood 3+ Urine Nitrite NEG Urine Bilirubin NEG Urine Urobilinogen NEG Urine Leukocyte Esterase NEG Urine WBC (Auto) >30 /hpf Urine RBC (Auto) 0-4 /hpf Urine Hyaline Casts (Auto) 1-5 /lpf Urine Epithelial Cells (Auto) >30 /lpf Urine Bacteria (Auto) NEG Urine Renal Epithelial Cells 0-5 /lpf Urine Crystals CALCIUM OXALATE Urine Pathogenic Casts See comments /lpf Urine Yeast (Auto) Test 09/24/16 08:00 Diagnostic Results CXR consistent with severe pneumonia, whole left lung, lines are supported , small PTX on the left. Echo at the bed side, EF 25%, dilated RV. small pleural and pericardial effusion. Assessment & Plan 1- Acute hypercapneic and hypoxic resp failure. 2- ARDS. 3- COPD exacerbation. 4- Left sided pneumonia. 5- PAD. Plan: 1- Intubate. 2- MV and Vap bundle. 3- antibiotic with vanco and zosyn. 4- dc aztreonam. 5- bronchodilators. 6- bronch done at the bed side, dictated separately. large amount of digested food in the lungs. 7- CVL placed in the left subclavian. 8- CVP monitoring. 9- a line right femoral. 10- bed side echo with poor EF 25%. dilated RV , likely cor pulmonale. 11- start bicarb drip at 150 meq with 150 ml/hr. 12-DVT and GI prophylaxis. 13- the pt continued to have livedo reticularis despite adding levo and weaning off dopa due to tachycardia. 14- CXR revealed pneumothorax , small 3 cm at the left apex, likely from hyperinflation . 15- NPO. 16- daily labs. 17- repeat lactic acid, trop and obtain formal echo in am. 18- bronch specimen for culture. 19- ID consult. 20- case discussed with the staff at night, and with Dr. Baca , CCT spent with the pt care excluding procedure time was 90 min.
--- NOTE | 2016-09-24 09:40 | Medical Consult ---
Consultation Note Date of Service Sep 24, 2016. Consultation Note Patient this morning prior to being able to be seen for Infectious Disease consultation. Therefore no Infectious Disease consultation was performed.
--- NOTE | 2016-09-24 09:46 | Procedure Note ---
Procedure Note Procedure Date Sep 24, 2016. Procedure Description Procedure Name: intubation. verbal consent attempted from the pt. indication the pt in resp distress on bipap 100% with RR around 40 and PH 7.0. 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 ambu bagged for 2 minutes, using MAC #4 and 7.5 ETT, the VC visualized, large amount of secretions removed from the hypopharynx. the ETT placed to 22 cm, adjusted later via the bronchoscope to 25 cm by the lips. secured, equal BS but diminished and PETCO2 was yellow. CXR and the bronch done later confirmed the position of the ETT 3 cm above the maribel. Procedure time out: side/site verified, patient ID confirmed, correct procedure Consent obtained: emergent consent implied Performed by: attending Contraindications: none Complications: none Comments: unable to obtain sat signal through out due to severe vasoconstriction in the periphery.
--- NOTE | 2016-09-24 09:50 | Procedure Note ---
Procedure Note Procedure Date Sep 24, 2016. Procedure Description Procedure Name: central line placed, needed for multiple drips including pressors. Procedure time out: side/site verified, patient ID confirmed, correct procedure Consent obtained: emergent consent implied Performed by: attending Indications: diagnostic Contraindications: none Description: the pt was in supine position, left subclavian site, under strict sterile field , the skin prepped with chlorhexidine and injected with 5 ml of 1% lido, using seldinger tech the line was placed with a dilator , no scalpel, one attempt. all ports flushed with NS, secured with two sutures and covered with surgical dressing. no immediate complication, CXR reviewed with small PTX on the left apex likely from hyperinflation than from line placement. may use the line and obtain CVP.
--- NOTE | 2016-09-24 09:54 | Procedure Note ---
Procedure Note Procedure Date Sep 24, 2016. Procedure Description Procedure Name: a line placement. Procedure time out: side/site verified, patient ID confirmed, correct procedure Consent obtained: emergent consent implied Performed by: attending Indications: diagnostic Contraindications: none Description: a line needed for multiple ABG and been on multiple high doses of pressors. the left radial attempted with US guidance without success due to severe clamping and vasoconstriction. the right femoral site attempted once with success, under strict sterile field, the skin prepped with chlorhexidine and injected with 5 ml of 1% lidoanai tech, no scalpel or dilator used. the line placed to 10 cm and a waves noted on the monitor. no hematoma, tolerated the procedure well. Complications: none Patient tolerated procedure: well
--- NOTE | 2016-09-24 09:59 | Procedure Note ---
Procedure Note Procedure Date Sep 24, 2016. Procedure Description Procedure Name: bronchoscopy. Procedure time out: side/site verified, patient ID confirmed, correct procedure Consent obtained: emergent consent implied Performed by: attending Indications: diagnostic, therapeutic Contraindications: none Description: the pt had extensive anson out left lung due to severe pneumonia. the was intubated earlier, monitored in the ICU with ICU standards, bed 4 , already on versed for sedation and comfortable. the brnch passed through #7.5 ETT and the Tracheobronchial tree examined to sub- sub segmental level. findings: 1- large amount of aspirated food and bile occluding the LMB with its branches, all the secretions suctioned to clear. 2- large amount of secretions occluding the RLL bronchus, suctioned to clear. 3- no endobronchial lesion. 4- friable mucosa, atrophied, consistent with severe COPD. 5- specimen obtained from the Left lung for microbiology. 6- the ETT adjusted to 3 cm above the maribel. 7- no immediate complications. 8- the bronch was removed entirely. 9- the pt did not require any bagging or interruption of the procedure. length of the procedure was 6 min.
[2016-09-24] MEDS ORDERED: MIDAZOLAM HCL 1 MG/ML 2ML VIAL IV ONE (12:37)
[2016-09-24] MEDS ORDERED: SODIUM BICARB 8.4% INJ 50 MEQ/50 ML SYR IV ONE (12:37)
[2016-09-24] MEDS ORDERED: ETOMIDATE 2 MG/ML 20 ML VIAL IV ONE (12:37)
[2016-09-24] MEDS ORDERED: ROCURONIUM BROMIDE 10 MG/ML 10 ML VIAL IV ONE (12:37)
[2016-09-24] MEDS ORDERED: SODIUM CHLORIDE 0.9% 500 ML BAG IV ONE (12:37)
[2016-09-24] MEDS ORDERED: SODIUM CHLORIDE 0.9% 10ML FLUSH IV ONE (12:37)
[2016-09-24] MEDS ORDERED: ATORVASTATIN 20 MG TAB PO SCH (21:00)
[2016-09-25 10:45] LABS: LEGIONELLA ANTIGEN NOT DETECTED (NOT DETECTED)
[2016-09-25] MEDS ORDERED: LEVOFLOXACIN / D5W 750 MG in PREMIXED IN D5W 150 ML IV SCH (22:00)
== END 2016-09-24 12:38 | disposition expired | DRG 853 ==
LOC: EDBD 21:24 → C.ED 21:27 → C.MSICU 23:41 → ENRESERV 09-24
PROVIDERS: ADMIT Internal Medicine; ATTEND Hospitalist
PROC: 0BH17EZ Insertion of Endotracheal Airway into Trachea, Via Natural or Artificial Opening (ICD-10-PCS; principal; 2016-09-24)
PROC: 5A1935Z Respiratory Ventilation, Less than 24 Consecutive Hours (ICD-10-PCS; principal; 2016-09-24)
PROC: 05H633Z Insertion of Infusion Device into Left Subclavian Vein, Percutaneous Approach (ICD-10-PCS; 2016-09-24)
PROC: 4A133R1 Monitoring of Arterial Saturation, Peripheral, Percutaneous Approach (ICD-10-PCS; 2016-09-24)
PROC: 0B9F8ZX Drainage of Right Lower Lung Lobe, Via Natural or Artificial Opening Endoscopic, Diagnostic (ICD-10-PCS; 2016-09-24)
PROC: 0BC78ZZ Extirpation of Matter from Left Main Bronchus, Via Natural or Artificial Opening Endoscopic (ICD-10-PCS; 2016-09-24)
DX: A41.9 Sepsis, unspecified organism (principal); J18.9 Pneumonia, unspecified organism; J96.01 Acute respiratory failure with hypoxia; J96.02 Acute respiratory failure with hypercapnia; J44.1 Chronic obstructive pulmonary disease with (acute) exacerbation; J44.0 Chronic obstructive pulmonary disease with (acute) lower respiratory infection; N17.9 Acute kidney failure, unspecified; R64 Cachexia; E87.2 Acidosis; J93.9 Pneumothorax, unspecified; R65.20 Severe sepsis without septic shock; I10 Essential (primary) hypertension; G89.29 Other chronic pain; M54.9 Dorsalgia, unspecified; E78.5 Hyperlipidemia, unspecified; F17.210 Nicotine dependence, cigarettes, uncomplicated; I73.9 Peripheral vascular disease, unspecified; R63.4 Abnormal weight loss; Z68.22 Body mass index [BMI] 22.0-22.9, adult; Z79.899 Other long term (current) drug therapy; I27.81 Cor pulmonale (chronic); D72.819 Decreased white blood cell count, unspecified